=== PATIENT | female | born 1970 | race Caucasian/White ===

== ENCOUNTER → 2018-04-28 09:42 | Outpatient (CLI) | payer BC, SELFPAY ==
--- NOTE | 2018-04-28 09:46 | MM_ITS ---
MM Dig screening mamm BI w/CAD CAD Screening COMPARISON: Digital mammograms with CAD 02/24/2017 and 02/02/2013 INDICATION: There is a history of breast cancer patient maternal cousin. There is been previous bilateral breast reduction surgery. TECHNIQUE: Standard CC and MLO images were obtained. R2 CAD reviewed. FINDINGS: The breasts are composed primarily of fat with minimal scattered fibro-glandular densities in each breast. There are couple of surgical clips right breast as noted previously. There is been little post surgical scarring in either breast. There are scattered benign-appearing micro- calcifications in each breast. IMPRESSION: Fatty type breast parenchyma with no suspicious lesion seen BI-RADS Category: 2 Benign Finding(s) RECOMMENDED FOLLOW-UP: 1YR - 1 YEAR FOLLOW-UP (A letter has been sent to the patient regarding results of the study.)
== END ==
PROVIDERS: Family Provider Pediatrics; PCP Pediatrics; Visit Provider Obstetrics & Gynecology
DX: Z12.31 Encounter for screening mammogram for malignant neoplasm of breast (principal)
CPT/HCPCS: 77067